=== PATIENT | male | born 1985 | race Caucasian/White ===

== ENCOUNTER 2025-05-24 18:38 | Emergency (ER) | payer SELFPAY ==
[2025-05-24 18:47] VITALS: TEMP 98.4
--- NOTE | 2025-05-24 19:06 | ERPHSYRPT ---
- History of Present Illness Time Seen by Provider: 05/24/25 18:57 Patient Subjective Stated Complaint: pt ran a stick into his right eye Triage Nursing Assessment: Pt brought to the ER by his , hypertensive, rates pain as 8/10, eye red and tearful, pain when eye is open or shut, denies any ot her injuries Physician History: Right eye injury, patient was setting up a tree stand and apparently he was poked in the eye, he was using [id number] drops and symptoms seem to gotten worse, he any loss of vision he does have eye pain and eye redness, He does not wear contact lenses Timing/Duration: today Location: right eye Severity: moderate Apparent Injury: yes Associated Symptoms: pain, sensitivity to light, redness, foreign body sensation Visual Assistive Devices: None Chemical Exposure: No Trauma: Yes (poked by stick) Welding Arc/Tanning Bed Exposure: No Allergies/Adverse Reactions: No Known Drug Allergies Allergy (Verified 05/24/25 18:47) Hx Influenza Vaccination/Date Given: No Hx Pneumococcal Vaccination/Date Given: No Travel Risk - International Travel Have you traveled outside of the country in past 3 weeks: No - Emerging Infectious Disease Are you exhibiting symptoms associated with any current EIDs: No - Past Medical History Pertinent Past Medical History: No - Past Surgical History Past Surgical History: Yes Musculoskeletal: Orthopedic Surgery Other Surgical History: tib fib fracture with a chani - Social History Smoking Status: Current every day smoker Exposure to second hand smoke: Yes Drug Use: none - Social Determinants of Health Will the patient participate in the screening: Yes Do you worry about a steady place to live?: No Do you have any problems with any of the following?: No known problems In the past 12 months,have you had to go without utilities?: No Transportation Issues: No Has anyone in your support network made you feel unsafe?: No Have you or anyone in your house had to go w/o enough food: No - Nursing Vital Signs Nursing Vital Signs: Initial Vital Signs Temperature 98.4 F 05/24/25 18:42 Pulse Rate 85 05/24/25 18:42 Respiratory Rate 15 05/24/25 18:42 Blood Pressure 163/98 05/24/25 18:42 O2 Sat by Pulse Oximetry 97 05/24/25 18:42 Pain Scale Pain Intensity 9 - Physical Exam General Appearance: no apparent distress, alert Vision Acuity Degree Evaluation Phase: Uncorrected Vision Acuity Right Eye: 20/50 Vision Acuity Left Eye: 20/50 Eye Exam: left eye: PERRL, EOMI Neck Exam: normal inspection, non-tender, supple, full range of motion Neurologic: alert, oriented x 3, cooperative, resident physician II-XII nml as tested, normal mood/affect, nml cerebellar function Skin Exam: normal color, warm, dry SpO2 Interpretation: normal SpO2: 97 Ordered Tests: Active Orders 24 hr Category Date Time Status Eye Patch Application STAT Care 05/24/25 19:33 Active Medication Summary Discontinued Medications Generic Name Dose Route Start Last Admin Trade Name Freq PRN Reason Stop Dose Admin Hydrocodone Bitart/Acetaminophen 1 tab 05/24/25 19:02 05/24/25 19:11 Hydrocodone/Apap 5/325 1 Tab Tablet PO 05/24/25 19:03 1 tab STAT ONE Administration Hydrocodone Bitart/Acetaminophen Confirm 05/24/25 19:08 Hydrocodone/Apap 5/325 1 Tab Tablet Administered 05/24/25 19:09 Dose 1 tab .ROUTE .STK-MED ONE Cyclopentolate HCl 2 ml 05/24/25 19:36 05/24/25 19:42 Cyclopentolate Hcl 2 Ml Bottle Eye Drops OP 05/24/25 19:37 2 ml STAT ONE Administration Cyclopentolate HCl Confirm 05/24/25 19:41 Cyclopentolate Hcl 2 Ml Bottle Eye Drops Administered 05/24/25 19:42 Dose 2 ml OP .STK-MED ONE Fluorescein Sodium 1 mg 05/24/25 19:02 05/24/25 19:12 Fluorescein Sodium 1 Mg/Strip Strip OP 05/24/25 19:03 1 mg STAT ONE Administration Fluorescein Sodium Confirm 05/24/25 19:07 Fluorescein Sodium 1 Mg/Strip Strip Administered 05/24/25 19:08 Dose 1 mg OP .STK-MED ONE Tetracaine HCl 4 ml 05/24/25 19:02 05/24/25 19:12 Tetracaine Hcl/Pf 4 Ml Bottle OP 05/24/25 19:03 4 ml STAT STA Administration Tetracaine HCl Confirm 05/24/25 19:07 Tetracaine Hcl/Pf 4 Ml Bottle Administered 05/24/25 19:08 Dose 4 ml OP .STK-MED ONE Tobramycin Sulfate 5 ml 05/24/25 19:33 05/24/25 19:42 Tobramycin Sulfate 0.3% 5 Ml Bottle Eye Drops OP 05/24/25 19:34 5 ml STAT ONE Administration Tobramycin Sulfate Confirm 05/24/25 19:41 Tobramycin Sulfate 0.3% 5 Ml Bottle Eye Drops Administered 05/24/25 19:42 Dose 5 ml OP .STK-MED ONE - Progress Progress Note: 05/24/25 20:02 Corneal abrasion at the 3:30 position, he had received Tetracaine and fluorescein, no slit-lamp examinations available at [facility], a black light examination was utilized, Cyclopentolate and Tobramycin drops, The right eye was double patched, he will follow-up with [facility] on Tuesday - Departure Departure Disposition: Home Clinical Impression: Right corneal abrasion Qualifiers: Encounter type: initial encounter Qualified Code(s): S05.01XA - Injury of conjunctiva and corneal abrasion without foreign body, right eye, initial encounter Condition: Stable Critical Care Time: No Referrals: FRANCISCA PATTERSON [ACTIVE STAFF, FAMILY PRACTICE] - Follow up/PCP as directed Additional Instructions: Follow-up to [facility] on Tuesday [phone], Tobramycin drops every 4 hours for 24 hrs then 4 times a day Prescriptions: Hydrocodone/APAP 5/325 [[place] 5/325 mg] 1 each PO Q6H PRN PRN #10 tablet MDD 6 PRN Reason: Pain
[2025-05-24] MEDS ORDERED: TETRACAINE 0.5% STERI-UNIT SOL OP ONE (19:07)
[2025-05-24] MEDS ORDERED: Fluor-I-Strip/Ful-Flo OP ONE (19:07)
[2025-05-24] MEDS ORDERED: NORCO 5/325 MG ONE (19:08)
[2025-05-24] MEDS: NORCO 5/325 MG PO ONE (19:11)
[2025-05-24] MEDS: Fluor-I-Strip/Ful-Flo OP ONE (19:12)
[2025-05-24] MEDS: TETRACAINE 0.5% STERI-UNIT SOL OP STA (19:12)
[2025-05-24] MEDS ORDERED: Tobrex EYE DROPS 5 ML OP ONE (19:41)
[2025-05-24] MEDS ORDERED: Cyclogyl 1% EYE DROPS OP ONE (19:41)
[2025-05-24] MEDS: Tobrex EYE DROPS 5 ML OP ONE (19:42)
[2025-05-24] MEDS: Cyclogyl 1% EYE DROPS OP ONE (19:42)
[2025-05-24 20:02] VITALS: O2SAT 97
[2025-05-24 20:23] VITALS: BP 152/94; PULSE 93; RESP 16
== END 2025-05-24 20:20 | disposition home or self-care (01) ==
LOC: ED 18:38
DX: S05.01XA Injury of conjunctiva and corneal abrasion without foreign body, right eye, initial encounter (principal); W22.8XXA Striking against or struck by other objects, initial encounter; Z72.0 Tobacco use